=== PATIENT | male | born 1970 | race Caucasian/White ===

== ENCOUNTER → 2016-03-30 | Outpatient (CLI) | payer BC ==
[~2016-03-30] MED LIST: AMLO10 PO; ATEN-104 PO; BC FPOW PO; DICL50 PO; HYDR-3533 PO; KETOC200 PO; NAPR220T95 PO; PERC5TAB12 PO
--- NOTE | 2016-04-02 17:17 | TR ---
Date Performed: 03/30/2016 Time Performed: 12:03:55 DOCTOR: León Shah DRUG LIST: CLINICAL HISTORY: DYSPNEA REASON FOR TEST: REASON FOR ENDING: OBSERVATION: CONCLUSION: ESTELA PROTOCOL. HAD 2 EPISODES OF CHEST PAIN EACH LASTING SECONDS. TEST STOPPED AF TER EXCEEDING GOAL HR SECONDARY TO SOB .Maximum NU=767 % Max HR Achieved=87.0% Maximum DA=849/44 Tota l Exercise Time=8:01 COMMENTS: Patient exercised using the Estela protocol. No electrocardiographic changes were seen to suggest ischemia. Hemodynamic response to exercise was normal. No significant arrhythmia was prese nt.
== END ==
LOC: HCAV 11:29
PROVIDERS: ATTEND Family Medicine
DX: R06.00 Dyspnea, unspecified (principal)
CPT/HCPCS: 93017

== ENCOUNTER → 2016-06-10 | Day surgery (SDC) | payer OTHER, BC ==
[~2016-06-10] MED LIST changes: +BUPIVACAINE HCL PF 0.75% 30 ML VIAL ONE; +LACTATED RINGER'S 1000 ML INJ 1,000 ML ONE; +LIDOCAINE 1.5%/EPINEPHrine 1:200,000 PF SOLN 30 ML AMP ONE; +MIDAZOLAM HCL 5 MG/ML VIAL (1 ML) ONE; +PROPOFOL 200 MG/20 ML AMP IV ONE; +ceFAZolin 2 GM PREMIX 50 ML ONE
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
== END | disposition home or self-care (01) ==
LOC: ESDC 08:42
PROVIDERS: ATTEND Orthopaedic Surgery Sports Medicine
DX: M25.512 Pain in left shoulder (principal); S43.432A Superior glenoid labrum lesion of left shoulder, initial encounter; M75.02 Adhesive capsulitis of left shoulder; S46.212A Strain of muscle, fascia and tendon of other parts of biceps, left arm, initial encounter; M75.42 Impingement syndrome of left shoulder
CPT/HCPCS: 01630; 01991; 29823; 29826; 64417; J0690; J2250; J7120